=== PATIENT | male | born 1995 | race African-American/Black ===

== ENCOUNTER 2024-09-23 01:00 | Emergency (ER) | payer OTHER ==
[~2024-09-23] VITALS: Ht 180.3 cm; Wt 81.6 kg
[2024-09-23] MEDS ORDERED: MORPHINE SULFATE INJ 4 MG/ML DISP.SYRIN ONE (01:16)
[2024-09-23] MEDS ORDERED: IOHEXOL-300 100 ML VIAL IV ONE (01:25)
[2024-09-23] MEDS: MORPHINE SULFATE INJ 2 MG/ML DISP.SYRIN IV ONE (01:25)
[2024-09-23] MEDS ORDERED: CT SWABBABLE VALVE TRANS SET 1 EA INFUS.SET MC ONE (01:25)
[2024-09-23] MEDS ORDERED: IV NS 0.9% 250 ML IV ONE (01:25)
[2024-09-23 01:31] LABS: BASOPHILS % (AUTO) 0.4 % (0.0-2.0); EOSINOPHILS # (AUTO) 0.3 K/uL (0.0-0.7); EOSINOPHILS % (AUTO) 2.3 % (0.0-6.0); HEMATOCRIT 42 % (39-51); LYMPHOCYTES # (AUTO) 3.3 K/uL (0.8-4.8); LYMPHOCYTES % (AUTO) 30.3 % (20.0-44.0); MEAN CORPUSCULAR HEMOGLOBIN 27 PG (26.0-33.0); MEAN CORPUSCULAR HGB CONC 33 g/dl (31.0-36.0); MEAN CORPUSCULAR VOLUME 82 fL (80-96); MONOCYTES # (AUTO) 0.5 K/uL (0.1-1.30); MONOCYTES % (AUTO) 4.7 % (2.0-12.0); NEUTROPHILS # (AUTO) 6.9 K/uL (1.8-8.9); NEUTROPHILS % (AUTO) 62.3 % (43.0-81.0); PLATELET COUNT (AUTO) 293 K/uL (150-450); RED BLOOD CELL COUNT(AUTO) 5.16 MIL/uL (4.5-6.0); RED CELL DISTRIBUTION WIDTH 14.8 % (11.5-15.0)
[2024-09-23 01:37] LABS: CALCIUM, SERUM 9.1 mg/dL (8.5-10.1); CREATININE 1.1 mg/dL (0.6-1.3); POTASSIUM 3.3 mmol/L (3.5-5.1)
[2024-09-23 01:57] LABS: INR 1.06 (0.91-1.10); PARTIAL THROMBOPLASTIN TIME 24.5 SEC (24.3-34.3); PROTHROMBIN TIME 11.2 SECS (9.2-11.1)
[2024-09-23] MEDS ORDERED: HYDR-3972 PO (02:44)
[2024-09-23 03:09] VITALS: BP 120/70; TEMP 98; O2SAT 100
== END 2024-09-23 03:10 | disposition home or self-care (01) ==
LOC: ER 01:06
DX: S89.82XA Other specified injuries of left lower leg, initial encounter (principal); J45.909 Unspecified asthma, uncomplicated; Z60.2 Problems related to living alone; Z86.2 Personal history of diseases of the blood and blood-forming organs and certain disorders involving the immune mechanism; Z79.899 Other long term (current) drug therapy; W23.0XXA Caught, crushed, jammed, or pinched between moving objects, initial encounter; Y93.89 Activity, other specified; Y92.89 Other specified places as the place of occurrence of the external cause; Y99.8 Other external cause status
CPT/HCPCS: 99285; 96374; 73702; 85025; 80048; 36415; 85730; J2270; J7050; Q9967